=== PATIENT | female | born 2000 | race Caucasian/White ===

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

== ENCOUNTER → 2018-06-20 | Outpatient (CLI) | END | disposition home or self-care (01) ==

== ENCOUNTER 2019-02-13 13:07 | Inpatient (IN) | payer OTHER ==
[~2019-02-13] VITALS: Ht 160 cm; Wt 89.5 kg
[~2019-02-13 13:07] MED LIST changes: +IBUP-1544 PO; +Oxycodone/Acetamin (5/325) PO
[2019-02-13] MEDS ORDERED: MISOPROSTOL 200 MCG TAB PR PRN ×2 (13:30→21:00)
[2019-02-13] MEDS ORDERED: OXYTOCIN 30 UNITS/LR 500 ML IV PRN ×2 (13:30→21:00)
[2019-02-13] MEDS ORDERED: AZITHROMYCIN 500MG/NS (PMX) 250 ML IV SCH (13:30)
[2019-02-13] MEDS ORDERED: METHYLERGONOVINE 0.2 MG INJ IM PRN ×2 (13:30→21:00)
[2019-02-13] MEDS ORDERED: CEFAZOLIN 2 GM/50 ML (PMX) 50 ML IVPB SCH (13:30)
[2019-02-13] MEDS ORDERED: CARBOPROST 250 MCG INJ IM PRN ×2 (13:30→21:00)
[2019-02-13 13:47] VITALS: Ht 160 cm; Wt 89.5 kg
[2019-02-13 13:48] VITALS: BP 110/69; PULSE 20; RESP 20
[2019-02-13] MEDS ORDERED: CLINDAMYCIN 900 MG/D5W (PMX) 50 ML IVPB SCH (14:00)
--- NOTE | 2019-02-13 15:44 | PREAC ---
Date/Time of Note Date/Time of Note DATE: 02/13/19 TIME: 15:43 Anesthesia Eval and Record Evaluation Time Pre-Procedure Interview DATE: 02/13/19 TIME: 15:43 Age 18 Sex female NPO: 8 hrs Preoperative diagnosis IUP Planned procedure Csection Past Medical History Past Medical History: None Surgery & Anesthesia Issues No known issue Meds Anticoagulation: No Beta Dillon within 24 hr: No Reason Beta Dillon not given: Pt. not on B-Dillon Active Scripts [Oxycodone/Acetamin (5/325)] 1 TAB TAB No Conflict Check, 2 TAB PO Q4H PRN for PAIN LEVEL 6-10, #30 0 Refills Prov:YUVAL SHEFFIELD MD 10/25/16 Ibuprofen* (Ibuprofen*) 800 Mg Tablet, 800 MG PO Q8, #20 TAB 0 Refills Prov:YUVAL SHEFFIELD MD 10/25/16 Reported Medications Vit W-Ca,Fe,FA(<1 mg) ( Vitamins) 1 Each Tablet, 1 EACH PO for 7 Days, TAB 10/21/16 Ferrous Sulfate (Iron) 325 Mg Capsule.er, 325 MG PO TID, CAP 09/01/16 Vit W-Ca,Fe,FA(<1 mg) ( Vitamins) 1 Each Tablet, 1 EACH PO DAILY, TAB 09/01/16 Current Medications Cefazolin Sodium/ Dextrose 50 ml @ 100 mls/hr ONCE IVPB ; Start 02/13/19 at 13:30 Azithromycin 250 ml @ 250 mls/hr ONCE IV ; Start 02/13/19 at 13:30 Oxytocin/Lactated Ringer's 500 ml @ 0 mls/hr ONCE PRN IV .VAGINAL BLEEDING; Start 02/13/19 at 13:30 Methylergonovine Maleate (Methergine) 0.2 mg ONCE PRN IM .VAGINAL BLEEDING; Start 02/13/19 at 13:30 Carboprost Tromethamine (Hemabate) 250 mcg ONCE PRN IM .VAGINAL BLEEDING; Start 02/13/19 at 13:30 Misoprostol (Cytotec) 1,000 mcg ONCE PRN PA .VAGINAL BLEEDING; Start 02/13/19 at 13:30 Meds reviewed: Yes Allergies Coded Allergies: Penicillins (Unverified Allergy, Severe, 02/13/19) hives Allergies Reviewed: Yes Labs/Studies Labs Reviewed: Reviewed by anesthesiologist Result Diagram: 02/13/19 1330 Laboratory Tests 02/13/19 13:30 Blood Bank Test 02/13/19 13:30 Antibody Screen NEGATIVE Blood Type O POSITIVE Rh Immune Globulin Candidate NO test: Positive Studies: ECG Pre-procedure Exam Last vitals Vital Signs Date Temp Pulse Resp B/P (MAP) Pulse Ox O2 O2 Flow FiO2 Time Delivery Rate 02/13/19 98.9 20 20 110/69 Room Air 13:48 (83) Airway: Adequate mouth opening, Adequate thyromental dist Mallampati: Mallampati II Teeth: Normal Lung: Normal Heart: Normal ASA Physical Status ASA physical status: 2 Emergency: None Planned Anesthetic Neuraxial: Spinal Planned Pain Management Sub-arachniod narcotics Pre-operative Attestations Prior to commencing anesthesia and surgery, the patient was re-evaluated, there was verification of: *The patient's identity *The results of appropriate recent lab work and preoperative vital signs *The above evaluation not changing prior to induction *Anesthetic plan, risk benefits, alternative and complications discussed with patient/family; questions answered; patient/family understands, accepts and wishes to proceed. NIMA LIRIANO MD February 13, 2019 15:44
[2019-02-13] MEDS ORDERED: OXYTOCIN 10 UNIT INJ ONE (15:48)
[2019-02-13] MEDS ORDERED: morphine SULFATE/PF (10 MG/10 ML) INJ ONE (15:48)
[2019-02-13] MEDS ORDERED: ONDANSETRON 4 MG INJ ONE (15:48)
[2019-02-13] MEDS ORDERED: GENTAMICIN 80 MG/NS (PMX) 50 ML IVPB SCH (16:30)
[2019-02-13] MEDS ORDERED: PHENYLephrine 10 MG INJ ONE (16:39)
--- NOTE | 2019-02-13 17:10 | PAC ---
Date/Time of Note Date/Time of Note DATE: 02/13/19 TIME: 17:09 Post-Anesthesia Notes Post-Anesthesia Note Last documented vital signs Vital Signs Date Temp Pulse Resp B/P (MAP) Pulse Ox O2 O2 Flow FiO2 Time Delivery Rate 02/13/19 98.9 20 20 110/69 Room Air 13:48 (83) Activity: WNL Respiratory function: WNL Cardiovascular function: WNL Mental status: Baseline Pain reasonably controlled: Yes Hydration appropriate: Yes Nausea/Vomiting absent: Yes Comments BP:105/65, P:74, Spo2:100%, T:98, NIMA LIRIANO MD February 13, 2019 17:10
--- NOTE | 2019-02-13 17:14 | HP ---
Date/Time of Note Date/Time of Note DATE: 02/13/19 TIME: 17:12 OB - History Hx of Present Free Text/Dictation 18-year-old female 2 para 1 admitted for repeat section at 39 weeks Last Menstrual Period: Apr 17, 2018 Estimated Due Date: February 20, 2019 : 2 Para: 1 Care: Good Care Ultrasounds: Normal mid trimester US Medical Complications: None Past Family/Social History * Past Medical, Surgical, Family and Obstetric Histories reviewed from chart. Blood Type: O+ Rubella: not immune RPR/VDRL: Negative GBS Status: Positive HBsAG: Negative OB Admission Exam Vital Signs Vital Signs Vital Signs Date Temp Pulse Resp B/P (MAP) Pulse Ox O2 O2 Flow FiO2 Time Delivery Rate 02/13/19 98.9 20 20 110/69 Room Air 13:48 (83) Physical Exam HEENT: WNL Heart: Rhythm Normal Lungs: Clear, Equal Abdomen: WNL Extremities: Normal Reflexes: Normal Cervical Dilatation: None Effacement: 0% Station: -3 Membranes: Intact Heart Rate: 140's Accelerations: Accelerations Present Decelerations: No Decelerations Varibility: Marked Contractions on Admission: None Last 72 hours Lab Results CBC & BMP 02/13/19 13:30 OB Assessment/Plan Reason for admission: section Other Assessment: Term gestation Previous section Other plan: Repeat section YUVAL SHEFFIELD MD February 13, 2019 17:14
--- NOTE | 2019-02-13 17:16 | OPR ---
Operative Report Planned Procedure Procedure date February 13, 2019 Procedure(s) Repeat section Performed by see signature line Systems Administration Analyst: FAVIOLA PAVON MD Anesthesiologist: NIMA LIRIANO MD Pre-procedure diagnosis Time gestation Previous section [id number] Anesthesia Type: Uizmi7s spinal Post-Procedure Post-procedure diagnosis Status post repeat section Findings Live Baby in OT position Clear amniotic fluid Normal-appearing right and left fallopian tubes and ovaries Estimated Blood Loss: 500 - 600 mls Specimen(s) none Grafts/Implant(s) none Complication(s) none Pt Condition post procedure: stable Disposition: PACU Procedure Description Under satisfactory anaesthesia a Pfannenstiel incision was made two fingerbreadth above and parallel to the symphysis of pubis around the previous scar and previous scar was removed Incision was extended laterally to the border of the Recti muscles on either sides. Incision was carried down with sharp and blunt dissection until fascia was reached. Anterior Recti muscle fascia was incised in mid portion and incision extended laterally to the border of skin incision. Fascia was mobilized from muscle superiorly and Recti muscles were from midline using sharp and blunt dissection. Peritoneum was visualized; Avoiding bowel and bladder it was incised . Incision was extended superiorly and inferiorly. Bladder blade was placed. Posterior per itoneum covering the lower segment of the uterus and lower segment of the uterus were incised.Low transverse uterine incision was made on lower segment of the uterus. Incision extended laterally to the border of Round Lig. on either sides and baby was delivered from OT. position . Amniotic fluid appeared clear. Cord blood was obtained and cord had 3 vessels . Placenta was delivered spontaneously and appeared intact and complete. Intrauterine cavity was rubbed with a laparotomy sponge. Uterine incision was closed in 2 layers using running stitches of No1 Monocryl. Hemostasis appeared secure. Ovaries and Fallopian tubes were within normal limits. Announcing needle, lap sponge and instrument count to be correct abdomen was closed in layers as follows: Peritoneum and Recti muscles with running stitches of 2-0 Vicryl. Fascia with running stitch of No 1 PDS. Subcutaneous tissue with running stitches of 2-0 Monocryl and skin was closed using antonio. Patient tolerated the procedure well and was transferred to [facility] in good condition. YUVAL SHEFFIELD MD February 13, 2019 17:16
[2019-02-13] MEDS ORDERED: KETOROLAC 30 MG INJ IV PRN (17:30)
[2019-02-13] MEDS ORDERED: DIPHENHYDRAMINE 50 MG INJ IV PRN (17:30)
[2019-02-13] MEDS ORDERED: ONDANSETRON 4 MG INJ IV PRN (17:30)
[2019-02-13] MEDS ORDERED: morphine 2 MG INJ IV PRN (17:30)
[2019-02-13] MEDS ORDERED: NALOXONE (0.4 MG/ML) INJ IV PRN (17:30)
[2019-02-13] MEDS ORDERED: KETOROLAC 30 MG INJ IV STA (17:32)
[2019-02-13] MEDS ORDERED: ACETAMINOPHEN 500 MG TAB PO STA (17:32)
[2019-02-13] MEDS ORDERED: GENTAMICIN 80 MG/NS (PMX) 50 ML IVPB ONE (18:00)
[2019-02-13] MEDS ORDERED: LACTATED RINGER'S 1,000 ML IV ONE (18:30)
[2019-02-13 20:15] VITALS: BP 111/57; PULSE 81; RESP 18
[2019-02-13] MEDS ORDERED: NA PHOSPHATE/BIPHOS 133 ML ENEMA PR PRN (21:00)
[2019-02-13] MEDS ORDERED: LANOLIN HPA 1 PKT TOP PRN (21:00)
[2019-02-13] MEDS ORDERED: HYDROCODONE/APAP (5/325) TAB PO PRN (21:00)
[2019-02-13] MEDS: GENTAMICIN 80 MG/NS (PMX) 50 ML IVPB SCH (21:42)
[2019-02-13] MEDS: SENNA/DOCUSATE NA (8.6MG/50MG) TAB PO SCH (21:42)
[2019-02-13] MEDS: LACTATED RINGER'S 1,000 ML IV SCH (21:42)
[2019-02-13] MEDS: CLINDAMYCIN 900 MG/D5W (PMX) 50 ML IVPB SCH (22:55)
[2019-02-13 23:30] VITALS: BP 112/57; PULSE 98; RESP 18
[2019-02-13] MEDS: CLINDAMYCIN 300 MG CAP PO SCH (23:34)
[2019-02-14 03:00] VITALS: BP 98/64; PULSE 100; RESP 18
[2019-02-14] MEDS: GENTAMICIN 80 MG/NS (PMX) 50 ML IVPB SCH ×3 (04:29→22:12)
[2019-02-14] MEDS: CLINDAMYCIN 300 MG CAP PO SCH ×3 (06:03→18:24)
[2019-02-14] MEDS: CLINDAMYCIN 900 MG/D5W (PMX) 50 ML IVPB SCH (06:03)
[2019-02-14 08:00] VITALS: BP 106/61; PULSE 95; RESP 18
[2019-02-14] MEDS: LACTATED RINGER'S 1,000 ML IV SCH (09:31)
[2019-02-14] MEDS: SENNA/DOCUSATE NA (8.6MG/50MG) TAB PO SCH ×2 (09:31→22:13)
[2019-02-14 12:15] VITALS: BP 96/56; PULSE 93; RESP 20
[2019-02-14] MEDS ORDERED: BISACODYL 10 MG SUPP PR ONE (14:00)
[2019-02-14 16:00] VITALS: BP 100/57; PULSE 86; RESP 20
[2019-02-14 20:30] VITALS: BP 109/64; PULSE 94; RESP 18
--- NOTE | 2019-02-14 21:27 | PN ---
Date/Time of Note Date/Time of Note DATE: 02/14/19 TIME: 21:26 Assessment/Plan VTE Prophylaxis VTE Prophylaxis Intervention: ambulation Lines/Catheters IV Catheter Type (from Nrsg): Saline Lock Assessment/Plan Assessment/Plan POD # ! S/P C/S advance diet and ambulate continue to monitor vital signs Subjective 24 Hr Interval Summary NO BM passing flatus Constitutional: no complaints, improved, ambulates, BM, flatus, urine output Pain Control: well controlled Exam/Review of Systems Vital Signs Vitals Vital Signs Date Temp Pulse Resp B/P (MAP) Pulse Ox O2 O2 Flow FiO2 Time Delivery Rate 02/14/19 98.5 86 20 100/57 16:00 (71) 02/14/19 97 Room Air 12:15 Intake and Output 02/13/19 02/13/19 02/14/19 1515:00 23:00 07:00 IntakeIntake Total 1375 ml 1150 ml OutputOutput Total 500 ml 1000 ml BalanceBalance 875 ml 150 ml Exam Free Text/Dictation abdomen: soft BS + incision is covered Constitutional: alert, oriented, well developed Psych: no complaints, nl mood/affect Head: normocephalic, atraumatic Eyes: nl conjunctiva, EOMI, nl lids, nl sclera ENMT: nl external ears & nose, nl lips & teeth, nl nasal mucosa & septum, mucosa pink and moist Neck: supple, non-tender Respiratory: clear to auscultation, normal air movement Cardiovascular: regular rate and rhythm, nl pulses Gastrointestinal: soft, nl liver, spleen, non-tender Musculoskeletal: nl extremities to inspection, nl gait and stance Extremities: normal pulses Neurological: SOLUTION LEAD II-XII intact, nl mental status, nl speech, nl strength Skin: nl turgor, rash or lesions Lymph: nl lymph nodes Results Result Diagram: 02/13/19 1330 YUVAL SHEFFIELD MD February 14, 2019 21:27
[2019-02-14] MEDS: IBUPROFEN 800 MG TAB PO SCH (22:13)
[2019-02-15] MEDS: CLINDAMYCIN 300 MG CAP PO SCH ×3 (00:50→12:33)
[2019-02-15] MEDS: OXYCODONE/ACETAMINOPHEN (5/325) TAB PO PRN (00:50)
[2019-02-15] MEDS: IBUPROFEN 800 MG TAB PO SCH ×3 (05:30→22:12)
[2019-02-15] MEDS: GENTAMICIN 80 MG/NS (PMX) 50 ML IVPB SCH (05:30)
[2019-02-15 08:30] VITALS: BP 98/62; PULSE 77; RESP 16
[2019-02-15] MEDS: SENNA/DOCUSATE NA (8.6MG/50MG) TAB PO SCH ×2 (09:30→22:12)
[2019-02-15] MEDS ORDERED: ACETAMINOPHEN 325 MG TAB PO PRN (12:00)
--- NOTE | 2019-02-15 12:06 | DS ---
Date/Time of Note Date/Time of Note DATE: 02/15/19 TIME: 12:05 Discharge Summary Admission/Discharge Info Admit Date/Time February 13, 2019 at 13:07 Discharge Date/Time February 15 on February 16, 2019 Discharge Diagnosis Status post section Patient Condition: Good Procedures Repeat section Hx of Present Illness 18-year-old female underwent repeat section Hospital Course She had uncomplicated course Tolerated diet well was ambulating without problems Incision was healing without induration and or erythema Discharge home on second or third day with good prognosis and condition Home Meds Active Scripts [Oxycodone/Acetamin (5/325)] 1 TAB TAB No Conflict Check, 2 TAB PO Q4H PRN for PAIN LEVEL 6-10, #30 0 Refills Prov:YUVAL SHEFFIELD MD 10/25/16 Ibuprofen* (Ibuprofen*) 800 Mg Tablet, 800 MG PO Q8, #20 TAB 0 Refills Prov:YUVAL SHEFFIELD MD 10/25/16 Reported Medications Vit W-Ca,Fe,FA(<1 mg) ( Vitamins) 1 Each Tablet, 1 EACH PO for 7 Days, TAB 10/21/16 Ferrous Sulfate (Iron) 325 Mg Capsule.er, 325 MG PO TID, CAP 09/01/16 Vit W-Ca,Fe,FA(<1 mg) ( Vitamins) 1 Each Tablet, 1 EACH PO DAILY, TAB 09/01/16 Follow-up Plan To 3 days in clinic for staple removal Primary Care Provider Kofi Andrew MD Time spent on discharge: > 30 minutes Pending Labs Laboratory Tests Test 02/15/19 07:11 White Blood Count 8.3 10^3/ul (4.8-10.8) Red Blood Count 3.22 10^6/ul (4.20-5.40) Hemoglobin 7.2 g/dl (12.0-16.0) Hematocrit 24.5 % (37.0-47.0) Mean Corpuscular Volume 76.1 fl (72.0-104.0) Mean Corpuscular Hemoglobin 22.4 pg (29.0-33.0) Mean Corpuscular Hemoglobin Concent 29.4 g/dl (32.0-37.0) Red Cell Distribution Width 16.4 % (11.5-14.5) Platelet Count 234 10^3/UL (140-415) Mean Platelet Volume 10.3 fl (7.4-10.4) Immature Granulocytes % 0.400 % (0.001-0.429) Neutrophils % 60.6 % (30.0-74.0) Lymphocytes % 26.7 % (18.0-55.0) Monocytes % 10.3 % (0.0-13.0) Eosinophils % 1.9 % (0.0-7.0) Basophils % 0.1 % (0.0-2.0) Nucleated Red Blood Cells % 0.0 /100WBC (0.0-0.0) Immature Granulocytes # 0.030 10^3/ul (0.0-0.031) Neutrophils # 5.0 10^3/ul (1.6-7.5) Lymphocytes # 2.2 10^3/ul (0.8-2.9) Monocytes # 0.9 10^3/ul (0.3-0.9) Eosinophils # 0.2 10^3/ul (0.0-0.5) Basophils # 0.0 10^3/ul (0.0-0.1) Nucleated Red Blood Cells # 0.0 10^3/ul (0.0-0.0) YUVAL SHEFFIELD MD February 15, 2019 12:06
--- NOTE | 2019-02-15 12:07 | DS ---
Date/Time of Note Date/Time of Note Home today or next day DATE: 02/15/19 TIME: 12:06 Obstetrical Discharge Record Final Diagnosis Final Diagnosis: Term delivered Other Final Diagnosis Status post repeat section Section Section: Repeat Condition on Discharge Physical Assessment Voiding: Yes Bowel Movement: Yes Breast: Soft, non-tender, Filling Fundus: Firm Abdomen and Incision: Abdomen is soft with present bowel sounds Without induration and no erythema Calf Tenderness: No Patient Condition: Good YUVAL SHEFFIELD MD February 15, 2019 12:07
--- NOTE | 2019-02-15 12:08 | PD.PPDC ---
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 ASSEMBLER Discharge Instruction Provider Information Physician Information 18-year-old female underwent repeat section Diagnosis [id number] Final Diagnosis: Ivfhk3j Status post Condition [id number] Patient Condition: Qtvnv6c Good Diet Aqgdu0Vj Diet: Gkfmf5i Resume Regular Diet Activity/Restrictions [id number] Activity: Pzasd0v May Shower Vsofr9Jz Restrictions: Amhny9k No Exercising Nothing in the Vagina Adrsx8Jt Return to Work or School: Tittk1e Apr 20, 2019 Wound/Drain Care Instructions Swfhc2Oe Wound/Drain Care Instructions: Bkdvr8d Keep clean and dry Follow-up Follow-up with Physician: 2, 3, Day/Days (In clinic for staple removal) Return to clinic for [id number] 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
[2019-02-15] MEDS ORDERED: IBUP800T48 PO (12:09)
[2019-02-15] MEDS ORDERED: ACET325T33 PO (12:09)
[2019-02-15 15:59] VITALS: BP 105/57; PULSE 84; RESP 18
[2019-02-15 20:00] VITALS: BP 113/62; PULSE 80; RESP 20
[2019-02-16 04:00] VITALS: BP 116/66; PULSE 75; RESP 17
[2019-02-16] MEDS: IBUPROFEN 800 MG TAB PO SCH ×2 (06:26→14:00)
[2019-02-16 08:45] VITALS: BP 114/64; PULSE 83; RESP 16
[2019-02-16] MEDS ORDERED: MEASLES,MUMPS,RUBELLA VACCINE INJ SC* ONE (09:00)
[2019-02-16] MEDS ORDERED: DIPHTH/TET/ACEL PERTUSS (ADULT) 0.5 ML VIAL IM* ONE (09:00)
[2019-02-16] MEDS: SENNA/DOCUSATE NA (8.6MG/50MG) TAB PO SCH (09:16)
[2019-02-16] MEDS: OXYCODONE/ACETAMINOPHEN (5/325) TAB PO PRN (12:50)
--- NOTE | 2019-02-17 16:30 | DELSUM ---
Delivery Summary A-C Datetime Report Generated by CPN: 02/17/2019 16:29 DELIVERY PERSONNEL Privacy Director: Isaiah, Jamila MATERNAL INFORMATION Delivery Anesthesia: Spinal Medications in Delivery: LR with 30 Units Pitocin Delivery QBL (ml): 700 Placenta Cultured: No Maternal Complications: None LABOR SUMMARY EDC: 02/20/2019 00:00 No. Babies in Womb: 1 Attempted: No Labor Anesthesia: None LABOR INFORMATION Reason for Induction: Not Applicable Oxytocin: N/A Group B Beta Strep: Positive Antibiotics # of Doses: Cleocin 900mg x1 Azythromycin x1 Antibiotics Time of Last Dose: 02/13/2019 16:00 Steroids Given: None Reason Steroids Not Administered: Not Applicable MEMBRANES Membranes Rupture Method: Artificial Rupture of Membranes: 02/13/2019 16:18 Length of Rupture (hr): 0.02 Amniotic Fluid Color: Clear Amniotic Fluid Amount: Moderate Amniotic Fluid Odor: None STAGES OF LABOR Stage 3 hr: 0 Stage 3 min: 1 CSECTION DELIVERY Primary Indication: Repeat Elective Secondary Indication: N/A CSection Urgency: Non Elective CSection Incidence: Repeat Labor: No Labor Elective: Nonelective CSection Incision: Lower Uterine Transverse BABY A INFORMATION Infant Delivery Date/Time: 02/13/2019 16:19 Method of Delivery: Born in Route : No : N/A Forceps: N/A Vacuum Extraction: N/A Shoulder Dystocia : N/A SHOULDER DYSTOCIA BABY A Delivery Date/Time: 02/13/2019 16:19 PRESENTATION/POSITION BABY A Presentation: Cephalic Cephalic Presentation: Vertex Vertex Position: Left Occipital Posterior Breech Presentation: N/A PLACENTA INFORMATION BABY A Placenta Delivery Time : 02/13/2019 16:20 Placenta Method of Delivery: Manual Removal Placenta Status: Delivered SCORES BABY A Heart Rate 1 min: >100 bpm Resp Effort 1 min: Good Cry Reflex Irritability 1 min: Cough/Sneeze/Pulls Away Muscle Tone 1 min: Active Motion Color 1 min: Body [place], Extremit Blue Resuscitation Effort 1 min: Tactile Stimulation SCORE 1 MIN: 9 Heart Rate 5 min: >100 bpm Resp Effort 5 min: Good Cry Reflex Irritability 5 min: Cough/Sneeze/Pulls Away Muscle Tone 5 min: Active Motion Color 5 min: Body [place], Extremit Blue Resuscitation Effort 5 min: Tactile Stimulation SCORE 5 MIN: 9 INFANT INFORMATION BABY A Gestational Age at Delivery: 39.0 Gestational Status: Full Term- 39- 40.6 Weeks Outcome : Liveborn Infant Condition : Stable Sex: Female IDENTIFICATION/MEDS BABY A ID Band Number: [id number] ID Band Location: Right Leg; Left Arm Sensor Applied: Yes Sensor Number: [id number] Sensor Location : Cord Clamp Vitamin K Given : Not Given Erythromycin Given: Not Given WEIGHT/LENGTH BABY A Infant Birthweight (gm): 3940 Weight (lb): 8 Weight (oz): 11 Length (in): 20.50 Infant Length (cm): 52.07 CORD INFORMATION BABY A No. Cord Vessels: 3 Nuchal Cord : N/A Cord Blood Taken: Yes Infant Suction: Mouth; Nose ASSESSMENT BABY A Complications: None Physical Findings at Delivery: Within Normal Limits Infant Respirations: Appears Normal Courtesy Booth Cashier/ALS Called : Yes Infant Care By: Isaiah Galloway RN, Humera Davila RT Transferred To: Remains with Mother
== END 2019-02-16 16:28 | disposition home or self-care (01) | DRG 788 ==
LOC: L-D 13:07 → PP1 20:03
PROVIDERS: ADMIT Obstetrics & Gynecology; ATTEND Obstetrics & Gynecology
PROC: 10D00Z1 Extraction of Products of Conception, Low, Open Approach (ICD-10-PCS; principal; 2019-02-13)
DX: O34.211 Maternal care for low transverse scar from previous cesarean delivery (principal); O99.824 Streptococcus B carrier state complicating childbirth; Z3A.39 39 weeks gestation of pregnancy; Z37.0 Single live birth
CPT/HCPCS: 85025; 85610; 85730; 86592; 86850; 86900; 86901; 99464; J0456; J1200; J1580; J1885; J2274; J2370; J2405; J2590; J7120

== ENCOUNTER 2019-02-23 23:53 | Emergency (ER) | payer OTHER ==
[~2019-02-23] VITALS: Wt 82.6 kg
[~2019-02-23 23:53] MED LIST changes: +ACET325T33 PO; -IBUP-1544 PO; +IBUP800T48 PO
[2019-02-24] MEDS ORDERED: CLIN300C10 PO (00:55)
--- NOTE | 2019-02-24 01:12 | ERD ---
ER Documentation Chief Complaint Chief Complaint p C/S 02/13/19; antonio taken out Sat. 'yellow liquid' discharge, pain today HPI 18-year-old female presents with complaint of yellow discharge coming out of her staple site since last Saturday. States that the antonio of all been removed. Also states there is some mild pain in that area today. States that she had a done on February 13, 2019. Denies any fevers, vomiting, chills. ROS All systems reviewed and are negative except as per history of present illness. Medications Home Meds Active Scripts Clindamycin Hcl* (Clindamycin Hcl*) 300 Mg Capsule, 300 MG PO QID for 7 Days, CAP Prov:MOHAN PEREZ 02/24/19 Ibuprofen* (Motrin*) 800 Mg Tab, 800 MG PO Q8, #60 TAB 0 Refills Prov:YUVAL SHEFFIELD MD 02/15/19 Acetaminophen* (Tylenol*) 325 Mg Tablet, 650 MG PO Q6H PRN for MILD PAIN(1-3)OR ELEVATED TEMP, #60 TAB 0 Refills Prov:YUVAL SHEFFIELD MD 02/15/19 [Oxycodone/Acetamin (5/325)] 1 TAB TAB No Conflict Check, 2 TAB PO Q4H PRN for PAIN LEVEL 6-10, #30 0 Refills Prov:YUVAL SHEFFIELD MD 10/25/16 Reported Medications Vit W-Ca,Fe,FA(<1 mg) ( Vitamins) 1 Each Tablet, 1 EACH PO for 7 Days, TAB 10/21/16 Ferrous Sulfate (Iron) 325 Mg Capsule.er, 325 MG PO TID, CAP 09/01/16 Vit W-Ca,Fe,FA(<1 mg) ( Vitamins) 1 Each Tablet, 1 EACH PO DAILY, TAB 09/01/16 Allergies Allergies: Coded Allergies: Penicillins (Unverified Allergy, Severe, 02/13/19) hives PMhx/Soc History of Surgery: Yes (2 C- section) Anesthesia Reaction: No Hx Neurological Disorder: No Hx Respiratory Disorders: No Hx Cardiac Disorders: No Hx Psychiatric Problems: No Hx Miscellaneous Medical Probl: Yes (Pre eclampsia first ) Hx Alcohol Use: No Hx Substance Use: No Hx Tobacco Use: No Smoking Status: Never smoker FmHx Family History: No diabetes, No coronary disease, No other Physical Exam Vitals Vital Signs Date Temp Pulse Resp B/P (MAP) Pulse Ox O2 O2 Flow FiO2 Time Delivery Rate 02/23/19 98.7 80 16 118/68 98 23:57 (85) Physical Exam Const: No acute distress Head: Atraumatic Eyes: Normal Conjunctiva ENT: Normal External Ears, Nose and Mouth. Neck: Full range of motion. No meningismus. Resp: Clear to auscultation bilaterally Cardio: Regular rate and rhythm, no murmurs Abd: Soft, non tender, non distended. Normal bowel sounds Skin: Incision site noted to the lower abdomen with all antonio having been removed. There is some scant white discharge noted to 1 of the sites. There is some mild erythema with no edema or obvious cellulitis noted. Back: No midline or flank tenderness Ext: No cyanosis, or edema Neur: Awake and alert Psych: Normal Mood and Affect Procedures/MDM MDM: There is no indication of any retained antonio or foreign bodies however there was some discharge noted at the staple site therefore patient will be given Rx for clindamycin to prevent any infection. Patient was advised that she needs to follow-up with her OB as this was a surgical related complication which needs to be managed by the surgeon. Patient understood and agreed to do so. At This point I have low suspicion for necrotizing fasciitis, sepsis, gangrene, Faustino-Chidi syndrome, toxic epidural necrolysis, cellulitis, anaphylaxis, allergic reaction. Patient discharged with strict ER precautions. Patient advised to follow up with PMD. All questions answered at discharge. Departure Diagnosis: Primary Impression: Encounter for wound re-check Condition: Stable Patient Instructions: Wound Care, Post Op Wound Check, Pain Referrals: DEN YOO MD (PCP) Additional Instructions: FOLLOW UP WITH YOUR PRIMARY CARE PHYSICIAN TOMORROW.Return to this facility if you are not improving as expected. MOHAN PEREZ Feb 24, 2019 01:12
[2019-02-24 01:42] VITALS: BP 117/67; PULSE 71; RESP 18
== END 2019-02-24 01:43 | disposition home or self-care (01) ==
LOC: FTE 23:53
DX: L53.9 Erythematous condition, unspecified (principal)
CPT/HCPCS: 99283

== ENCOUNTER 2019-02-26 13:51 | Emergency (ER) | payer OTHER ==
[~2019-02-26] VITALS: Ht 160 cm; Wt 81.2 kg
[~2019-02-26 13:51] MED LIST changes: +CLIN300C10 PO
[2019-02-26 13:56] VITALS: Ht 160 cm; Wt 81.2 kg
[2019-02-26] MEDS ORDERED: CEFTRIAXONE 1 GM INJ IM ONE (15:00)
--- NOTE | 2019-02-26 15:04 | ERD ---
ER Documentation Chief Complaint Chief Complaint SITE PAIN/DRAINAGE, FEVER X 1 WEEK HPI 18-year-old female who presents with complaint of fevers and site pain and drainage over the past week. Patient had delivery at 39 weeks via section on [address] Schmitt. Initially presented to this ED on 24 February for similar complaints, prescribed clindamycin and instructed to follow-up with PMD/ROOM [facility]ER. Patient saw ROOM CLEANER at a clinic on 25 February, prescribed 2 antibiotics but patient does not recall names of both antibiotics. Has not filled prescriptions and began antibiotics secondary to breast-feeding concerns. Patient has ordered formula for her which she states will arrive today. She otherwise denies chest pain, shortness of breath, dyspnea, nausea, vomiting, diarrhea, upper abdominal pain. Triage vital signs notable for fever of 100.8, tachycardia patient at time of evaluation nontoxic appearing and in no acute distress. ROS All systems reviewed and are negative except as per history of present illness. Medications Home Meds Active Scripts Clindamycin Hcl* (Clindamycin Hcl*) 300 Mg Capsule, 300 MG PO QID for 7 Days, CAP Prov:MOHAN PEREZ 02/24/19 Ibuprofen* (Motrin*) 800 Mg Tab, 800 MG PO Q8, #60 TAB 0 Refills Prov:YUVAL SHEFFIELD MD 02/15/19 Acetaminophen* (Tylenol*) 325 Mg Tablet, 650 MG PO Q6H PRN for MILD PAIN(1-3)OR ELEVATED TEMP, #60 TAB 0 Refills Prov:YUVAL SHEFFIELD MD 02/15/19 [Oxycodone/Acetamin (5/325)] 1 TAB TAB No Conflict Check, 2 TAB PO Q4H PRN for PAIN LEVEL 6-10, #30 0 Refills Prov:YUVAL SHEFFIELD MD 10/25/16 Reported Medications Vit W-Ca,Fe,FA(<1 mg) ( Vitamins) 1 Each Tablet, 1 EACH PO for 7 Days, TAB 10/21/16 Ferrous Sulfate (Iron) 325 Mg Capsule.er, 325 MG PO TID, CAP 09/01/16 Vit W-Ca,Fe,FA(<1 mg) ( Vitamins) 1 Each Tablet, 1 EACH PO DAILY, TAB 09/01/16 Allergies Allergies: Coded Allergies: Penicillins (Unverified Allergy, Severe, 02/13/19) hives PMhx/Soc History of Surgery: Yes (2 C- section) Anesthesia Reaction: No Hx Neurological Disorder: No Hx Respiratory Disorders: No Hx Cardiac Disorders: No Hx Psychiatric Problems: No Hx Miscellaneous Medical Probl: Yes (Pre eclampsia first ) Hx Alcohol Use: No Hx Substance Use: No Hx Tobacco Use: No FmHx Family History: No diabetes, No coronary disease, No other Physical Exam Vitals Vital Signs Date Temp Pulse Resp B/P (MAP) Pulse Ox O2 O2 Flow FiO2 Time Delivery Rate 02/26/19 100.8 15:26 02/26/19 100.8 119 18 116/69 96 13:56 (85) Physical Exam I have reviewed the triage vital signs. Const: Well nourished, well developed, appears stated age Eyes: PERRL, no conjunctival injection HENT: NCAT, Neck supple without meningismus CV: RRR, Warm, well-perfused extremities RESP: CTAB, Unlabored respiratory effort GI: soft, non-tender, non-distended, no masses MSK: No gross deformities appreciated Skin: scar, right side with purulent drainage, tender to touch, mild swelling Neuro: grossly non focal Psych: Appropriate mood and affect. Result Diagram: 02/26/19 1515 02/26/19 1515 Results 24 hrs Laboratory Tests Test 02/26/19 15:15 White Blood Count 10.7 10^3/ul Red Blood Count 4.40 10^6/ul Hemoglobin 9.8 g/dl Hematocrit 32.6 % Mean Corpuscular Volume 74.1 fl Mean Corpuscular Hemoglobin 22.3 pg Mean Corpuscular Hemoglobin Concent 30.1 g/dl Red Cell Distribution Width 16.8 % Platelet Count 416 10^3/UL Mean Platelet Volume 10.1 fl Immature Granulocytes % 0.400 % Neutrophils % 87.2 % Lymphocytes % 7.9 % Monocytes % 3.9 % Eosinophils % 0.3 % Basophils % 0.3 % Nucleated Red Blood Cells % 0.0 /100WBC Immature Granulocytes # 0.040 10^3/ul Neutrophils # 9.3 10^3/ul Lymphocytes # 0.8 10^3/ul Monocytes # 0.4 10^3/ul Eosinophils # 0.0 10^3/ul Basophils # 0.0 10^3/ul Nucleated Red Blood Cells # 0.0 10^3/ul Urine Color YELLOW Urine Clarity CLEAR Urine pH 7.0 Urine Specific [place] 1.012 Urine Ketones NEGATIVE mg/dL Urine Nitrite NEGATIVE mg/dL Urine Bilirubin NEGATIVE mg/dL Urine Urobilinogen NEGATIVE mg/dL Urine Leukocyte Esterase NEGATIVE Kirk/ul Urine Microscopic RBC 0 /HPF Urine Microscopic WBC 2 /HPF Urine Squamous Epithelial Cells FEW /HPF Urine Bacteria FEW /HPF Urine Hemoglobin 1+ mg/dL Urine Glucose NEGATIVE mg/dL Urine Total Protein NEGATIVE mg/dl Sodium Level 141 mmol/L Potassium Level 3.5 mmol/L Chloride Level 106 mmol/L Carbon Dioxide Level 22 mmol/L Anion Gap 13 Blood Urea Nitrogen 8 mg/dl Creatinine 0.64 mg/dl Est Glomerular Filtrat Rate mL/min > 60 mL/min Glucose Level 92 mg/dl Calcium Level 8.6 mg/dl Total Bilirubin 0.5 mg/dl Direct Bilirubin 0.00 mg/dl Indirect Bilirubin 0.5 mg/dl Aspartate Amino Transf (AST/SGOT) 25 IU/L Alanine Aminotransferase (ALT/SGPT) 33 IU/L Alkaline Phosphatase 130 IU/L Total Protein 7.7 g/dl Albumin 4.1 g/dl Globulin 3.60 g/dl Albumin/Globulin Ratio 1.13 Current Medications Medications Dose Sig/Franco Start Time Status Last (Trade) Ordered Route PRN Stop Time Admin Dose Reason Admin Ceftriaxone 1 gm ONCE ONCE 02/26/19 DC Sodium IM 15:00 02/26/19 (Rocephin) 15:06 Ceftriaxone 50 ml @ ONCE ONCE 02/26/19 DC 02/26/19 Sodium 100 mls/hr IVPB 15:30 02/26/19 15:26 15:59 Sodium 1,000 ml @ Q1H ONCE 02/26/19 DC 02/26/19 Chloride 1,000 mls/hr IV 15:30 02/26/19 15:26 16:29 1,000 mg ONCE STAT 02/26/19 DC 02/26/19 Acetaminophen PO 15:10 02/26/19 15:26 (Tylenol 15:12 Tab) Sodium 100 ml @ ud STK-MED 02/26/19 DC Chloride ONCE .ROUTE 16:05 02/26/19 16:06 Iohexol 150 ml STK-MED 02/26/19 DC (Omnipaque ONCE .ROUTE 16:05 02/26/19 300mg/ ml) 16:06 Procedures/MDM 18-year-old with recent delivery at 39 weeks via section who pr esents with complaint of site pain and drainage and fevers. Patient recently prescribed antibiotics but has not started secondary to breast-feeding concerns. Patient now feeding infant with formula and agrees to begin antibiotic course. She has good follow-up with ROOM CLEANER Dr. Mejia and has agreed to follow-up. She has small non-drainable collection anterior pelvic wall. I have low suspicion for disseminated intra-abdominal, pelvic infection warranting further emergent care or work-up. Case and plan discussed with attending of record. ED course: Given [address] with small fluid collection in anterior pelvic wall just superior to the levels symphysis pubis measuring 3.6 X1.8 x 2.8 cm, too small for percutaneous drainage. No intra-abdominal fluid collection. Trace linear fluid seen within the inferior rectus muscles. Patient advised to begin and complete antibiotics prescribed by her ROOM [facility]ANER. Patient is instructed to follow-up with ROOM CLEANER tomorrow morning. Strict return precautions explained in detail to patient. DISPOSITION PLAN: We discussed follow up with the patient's primary care doctor within 24 to 48 hours. Patient counseled regarding my diagnostic impression and care plan. Prior to discharge all questions answered. Pt agrees with treatment plan and understands strict return precautions. Precautionary instructions provided including instructions to return to the ER if not improving or for any worsening or changing symptoms or concerns. Disclaimer: Inadvertent spelling and grammatical errors are likely due to EHR/dictation software use and do not reflect on the overall quality of patient care. Also, please note that the electronic time recorded on this note does not necessarily reflect the actual time of the patient encounter. Departure Diagnosis: Primary Impression: Postoperative complication Condition: Stable Referrals: DEN YOO MD (PCP) TARSHA HOUSER PA-C Feb 26, 2019 15:04
[2019-02-26] MEDS ORDERED: ACETAMINOPHEN 500 MG TAB PO STA (15:10)
[2019-02-26] MEDS ORDERED: SOD CHLORIDE 0.9% 1,000 ML IV ONE (15:30)
[2019-02-26] MEDS ORDERED: CEFTRIAXONE 1 GM/50 ML (PMX) 50 ML IVPB ONE (15:30)
[2019-02-26] MEDS ORDERED: SOD CHLORIDE 0.9% 100 ML ONE (16:05)
[2019-02-26] MEDS ORDERED: IOHEXOL 300MG/ML 150 ML BTL ONE (16:05)
[2019-02-26 17:48] VITALS: BP 122/60; PULSE 68; RESP 18
== END 2019-02-26 17:48 | disposition home or self-care (01) ==
LOC: FTE 13:51
DX: O75.4 Other complications of obstetric surgery and procedures (principal); Z3A.39 39 weeks gestation of pregnancy
CPT/HCPCS: 36415; 74177; 80053; 81001; 85025; 96361; 96365; J0696; J7030; Q9967; Z7502; Z7610